=== PATIENT | male | born 1975 ===

== ENCOUNTER 2016-12-18 17:40 | Emergency (ER) | payer BC ==
[2016-12-18 17:53] VITALS: BP 124/88
--- NOTE | 2016-12-18 18:05 | UC ---
Skin Complaint HPI - HPI Summary HPI Summary: 41 yo male with a one day hx of f/c, headache, neck pain, myalgias and bullseye rash He is an avid hiker no n/v/d no cough no Uti sxs - History of Current Complaint Chief Complaint: UCSkin Time Seen by Provider: 12/18/16 17:51 Stated Complaint: FEVER/ BODY ACHES Hx Obtained From: Patient Onset/Duration: Sudden Onset, Lasting Hours Timing: Constant Onset Severity: Mild Current Severity: Moderate Pain Intensity: 4 Pain Scale Used: 0-10 Numeric Location: Other - right popliteal fossa Character: Redness Aggravating: Nothing Alleviating: Nothing Associated Signs & Symptoms: Positive: Fever, Chills, Rash - Allergy/Home Medications Allergies/Adverse Reactions: Allergies Allergy/AdvReac Type Severity Reaction Status Date / Time No Known Allergies Allergy Verified 12/18/16 17:53 Review of Systems Constitutional: Fever, Chills Skin: Rash Eyes: Negative ENT: Negative Respiratory: Negative Cardiovascular: Negative Gastrointestinal: Negative Genitourinary: Negative Motor: Negative Neurovascular: Negative Musculoskeletal: Myalgia Neurological: Headache Psychological: Negative All Other Systems Reviewed And Are Negative: Yes PMH/Surg Hx/FS Hx/Imm Hx Previously Healthy: Yes - Surgical History Surgical History: Yes Surgery Procedure, Year, and Place: cysts removed left wrist - Family History Known Family History: Positive: Cardiac Disease - father - Social History Alcohol Use: Daily Alcohol Amount: 1-2 beers Substance Use Type: None Smoking Status (MU): Never Smoked Tobacco Physical Exam Triage Information Reviewed: Yes Appearance: Well-Appearing, No Pain Distress, Well-Nourished Vital Signs: Initial Vital Signs Temp 99.5 F 12/18/16 17:49 Pulse 85 12/18/16 17:49 Resp 14 12/18/16 17:49 BP 124/88 12/18/16 17:49 Pulse Ox 98 12/18/16 17:49 Eyes: Positive: Conjunctiva Clear ENT: Positive: Hearing grossly normal, Pharynx normal, TMs normal. Negative: Nasal congestion, Nasal drainage, Tonsillar swelling, Tonsillar exudate, Trismus , Muffled/hoarse voice Dental Exam: Normal Neck: Positive: Supple, Nontender, No Lymphadenopathy Respiratory: Positive: Lungs clear, Normal breath sounds, No respiratory distress, No accessory muscle use Cardiovascular: Positive: RRR, No Murmur Abdomen Description: Positive: Nontender, No Organomegaly, Soft. Negative: CVA Tenderness (R), CVA Tenderness (L) Musculoskeletal: Positive: ROM Intact, No Edema Neurological: Positive: Alert, Muscle Tone Normal Psychological Exam: Normal Skin Exam: Other - see image Course/Dx - Diagnoses Provider Diagnoses: erthyema migrans. early Lyme disease Discharge - Discharge Plan Condition: Stable Disposition: HOME Prescriptions: DOXYcycline CAP(*) [DOXYcycline 100MG CAP(*)] 100 mg PO BID #[id number] cap Patient Education Materials: Lyme Disease (ED) Referrals: Bebe HUSAIN,Gabino Zendejas [Primary Care Provider] - Additional Instructions: You have erthyema migrans and symptoms consistent with early Lyme disease Should you desire conformation of this you could get your blood work tested in 2 weeks recheck for new or worsening symptoms Images Front/Back of Body, Lg ([place]): 1 - erthyema migrans 9x15cm
== END 2016-12-18 18:11 | disposition home or self-care (01) ==
LOC: UCCORT 17:40
DX: A26.0 Cutaneous erysipeloid (principal); A69.20 Lyme disease, unspecified; R50.9 Fever, unspecified
CPT/HCPCS: 99202; G0463